=== PATIENT | female | born 2000 | race Caucasian/White ===

== ENCOUNTER 2024-02-27 10:53 | Outpatient (CLI) | payer OTHER ==
[~2024-02-27] VITALS: Ht 172.7 cm; Wt 86.4 kg
[2024-02-27] MEDS ORDERED: PRENTAB9 PO (11:12)
[2024-02-27 11:15] VITALS: BP 130/80
[2024-02-27] MEDS ORDERED: HOME MED LIST COMPLETE! XX SCH (11:15)
== END 2024-02-27 12:27 | disposition home or self-care (01) ==
LOC: M LDO 10:53
PROVIDERS: ATTEND Obstetrics & Gynecology
DX: O36.8129 Decreased fetal movements, second trimester, other fetus (principal); Z3A.27 27 weeks gestation of pregnancy
CPT/HCPCS: 59025; G0463

== ENCOUNTER 2024-03-01 18:43 | Outpatient (CLI) | payer OTHER ==
[~2024-03-01] VITALS: Ht 172.7 cm; Wt 87.0 kg
[~2024-03-01 18:43] MED LIST: PRENTAB9 PO
[2024-03-01 19:08] VITALS: BP 123/59; O2SAT 98
== END 2024-03-01 19:30 | disposition home or self-care (01) ==
LOC: M LDO 18:43
PROVIDERS: ATTEND Advanced Practice Midwife
DX: O26.892 Other specified pregnancy related conditions, second trimester (principal); N89.8 Other specified noninflammatory disorders of vagina; Z3A.27 27 weeks gestation of pregnancy
CPT/HCPCS: 59025; G0463

== ENCOUNTER → 2024-05-04 | Outpatient (REF) | payer OTHER ==
[2024-05-04 13:36] LABS: Trichomonas vaginalis (AMP) NOT DETECTED (NEGATIVE)
[2024-05-04 14:00] LABS: GC DNA AMPLIFICATION NEGATIVE (NEGATIVE)
== END ==
LOC: M LAB REF 12:10
PROVIDERS: ATTEND Nurse Practitioner Family
DX: R30.0 Dysuria (principal); N89.8 Other specified noninflammatory disorders of vagina

== ENCOUNTER → 2024-10-18 | Outpatient (CLI) | payer OTHER | LOC: M PLAIMG 13:27 | PROVIDERS: ATTEND Otolaryngology | DX: J32.8 Other chronic sinusitis (principal); J34.2 Deviated nasal septum ==